=== PATIENT | male | born 1970 | race Caucasian/White ===

== ENCOUNTER 2021-11-01 10:10 | Day surgery (SDC) | payer OTHER, SELFPAY ==
[~2021-11-01] VITALS: Ht 175.3 cm; Wt 113.4 kg
[2021-11-01] MEDS ORDERED: MIDAZOLAM 2 MG/2 ML VIAL ONE (11:15)
[2021-11-01] MEDS ORDERED: LIDOCAINE 2% 100 MG/5 ML UJET TP ONE ×2 (11:15→14:25)
[2021-11-01] MEDS ORDERED: fentaNYL citrate 0.05 MG/ML VIAL ONE (11:15)
[2021-11-01] MEDS ORDERED: MIDAZOLAM 5 MG/5 ML VIAL ONE (11:16)
[2021-11-01] MEDS ORDERED: KETOROLAC 60 MG/2 ML VIAL IM ONE (11:21)
[2021-11-01] MEDS ORDERED: KETOROLAC 30 MG/ML VIAL IVP ONE (14:25)
== END 2021-11-01 12:15 | disposition home or self-care (01) ==
LOC: MDS 10:10 → MMU 10:10 → MDS 12:15
PROVIDERS: ATTEND Internal Medicine Gastroenterology
DX: Z12.11 Encounter for screening for malignant neoplasm of colon (principal); D12.0 Benign neoplasm of cecum; Z20.822 Contact with and (suspected) exposure to COVID-19; Z79.899 Other long term (current) drug therapy
CPT/HCPCS: 45385; 87426; J1885; J2250; J3010